=== PATIENT | male | born 1980 | race Caucasian/White ===

== ENCOUNTER 2023-06-25 16:21 | Outpatient (CLI) | payer MEDICARE, MEDICAID ==
[2023-07-05] MEDS ORDERED: CEPH250T PO (14:55)
[2023-07-05] MEDS ORDERED: LOSA-415 PO (14:55)
[2023-07-05] MEDS ORDERED: HYDR-4069 PO (14:55)
[2023-07-05] MEDS ORDERED: LOSA-416 PO (14:55)
[2023-07-05] MEDS ORDERED: MULT-1085 PO (14:55)
[2023-07-05] MEDS ORDERED: METO-395 PO (14:55)
== END 2023-06-25 23:59 | disposition home or self-care (01) ==
LOC: RAD 16:21
PROVIDERS: ATTEND Otolaryngology
DX: Z01.818 Encounter for other preprocedural examination (principal); I51.9 Heart disease, unspecified
CPT/HCPCS: 93005

== ENCOUNTER 2023-09-11 08:01 | Day surgery (SDC) | payer MEDICARE, MEDICAID ==
[2023-09-11] VITALS (7 sets, daily range): BP systolic 129–157; BP diastolic 64–93; PULSE 70–87; RESP 12–16; TEMP 98.4; O2SAT 93–97
[~2023-09-11] VITALS: Ht 188 cm; Wt 142.8 kg
[~2023-09-11 08:01] MED LIST: AMLO5TAB16 PO; DOCUMENT DATE & TIME OF BETA-BLOCKER PO ONE; HYDR-4069 PO; LIDOcaine 1% w/EPI 1:100,000 inj. MDV 50 ML VIAL ONE; LOSA-415 PO; LOSA-416 PO; METO25TA6 PO; OMEP20CA16 PO; ceFAZolin inj. 3,000 MG in normal saline 100ml IV soln 100 ML IV ONE; cocaine 4% topical solution 4ml bottle ONE; epiNEPHrine 1 mg/ml 30ml MDV ONE; famotidine 20mg tablet PO ONE; mupirocin 2% ointment 22GM ONE; oxymetazoline 15 ML nasal spray NS ONE; ringers solution, lacted 1,000 ML IV SCH; tranexamic acid inj. 1,000 MG in normal saline IV soln 100ML IV ONE
[2023-09-11] MEDS: oxymetazoline 15 ML nasal spray NS ONE ×2 (09:44→11:58)
[2023-09-11] MEDS ORDERED: fentaNYL/PF 50MCG/1 ML 2ML syringe ONE (10:50)
[2023-09-11] MEDS ORDERED: midazolam 1 mg/ML 2ml injection ONE (10:51)
[2023-09-11] MEDS ORDERED: rocuronium 10mg/ml inj IV ONE ×2 (10:53→11:02)
[2023-09-11] MEDS ORDERED: propofol inj 20 ML IV ONE (10:53)
[2023-09-11] MEDS ORDERED: LIDOcaine 2% (20mg/ml) 5ml vial ONE (10:53)
[2023-09-11] MEDS ORDERED: sevoflurane 250ml liquid IH ONE (11:02)
[2023-09-11] MEDS ORDERED: triamcinolone acetonide 40mg/ml inj ONE (11:09)
[2023-09-11] MEDS ORDERED: meperidine/PF 25mg/ml syringe IV PRN ×3 (11:40)
[2023-09-11] MEDS ORDERED: ondansetron/PF 4mg/2ml inj IV PRN (11:40)
[2023-09-11] MEDS ORDERED: morphine 2 MG/ML inj. syringe IV PRN (11:40)
[2023-09-11] MEDS ORDERED: morphine 4 MG/ML inj SYRINge IV PRN (11:40)
[2023-09-11] MEDS ORDERED: proCHLORperazine 10 MG/2 ml inj IV PRN (11:40)
[2023-09-11] MEDS ORDERED: ringers solution, lacted 1,000 ML IV SCH (11:40)
[2023-09-11] MEDS ORDERED: neostigmine methylsulfate 1 MG/ML 10ml vial ONE (12:46)
[2023-09-11] MEDS ORDERED: ondansetron/PF 4mg/2ml inj ONE (12:46)
[2023-09-11] MEDS ORDERED: ePHEDrine 50MG/ML INJ. ONE (12:46)
[2023-09-11] MEDS ORDERED: dexamethasone sod phosphate 4mg/ml inj. ONE (12:46)
[2023-09-11] MEDS ORDERED: glycopyrrolate 0.2mg/ml inj ONE (12:46)
[2023-09-11] MEDS ORDERED: meperidine/PF 25mg/ml syringe ONE (13:02)
[2023-09-11] MEDS ORDERED: methylPREDNISolone acetate 80mg/ml inj**IM only ONE (13:16)
[2023-09-11] MEDS ORDERED: salt irrigation nasal spray 45 ML SPRAY NS PRN (13:25)
[2023-09-11] MEDS ORDERED: mupirocin 2% nasal ointment 1gm UD NS ONE (13:25)
== END 2023-09-11 13:54 | disposition home or self-care (01) ==
LOC: PAS 08:01
PROVIDERS: ATTEND Otolaryngology
DX: J32.8 Other chronic sinusitis (principal); J33.8 Other polyp of sinus; I10 Essential (primary) hypertension; E66.01 Morbid (severe) obesity due to excess calories; Z68.41 Body mass index [BMI] 40.0-44.9, adult; Z98.890 Other specified postprocedural states; Z79.899 Other long term (current) drug therapy
CPT/HCPCS: 31259; 31267; 31276; 61782; 82948; A6402; C2625; J0171; J0690; J1040; J1100; J2175; J2250; J2405; J2704; J2710; J3010; J3301; J3490; J7030; J7050; J7120; Z7506; Z7508; Z7512; A4618; A6449; A7000